=== PATIENT | male | born 1985 | race Hispanic/Latino ===

== ENCOUNTER 2016-12-18 08:22 | Emergency (ER) | payer OTHER ==
[2016-12-18 08:28] VITALS: BMI 29.6
[2016-12-18 08:29] VITALS: BP 114/80; PULSE 102; RESP 16; TEMP 99.1; O2SAT 98
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
== END 2016-12-18 09:59 | disposition home or self-care (01) ==
LOC: EDBD → ED 08:22
DX: S00.33XA Contusion of nose, initial encounter (principal); V49.59XA Passenger injured in collision with other motor vehicles in traffic accident, initial encounter; W22.12XA Striking against or struck by front passenger side automobile airbag, initial encounter; Y92.410 Unspecified street and highway as the place of occurrence of the external cause; R04.0 Epistaxis